=== PATIENT | male | born 1985 | race Caucasian/White ===

== ENCOUNTER 2017-01-16 17:02 | Emergency (ER) | payer SELFPAY ==
[2017-01-16] MEDS ORDERED: NORMAL SALINE 1000 ML 1,000 ML IV ONE (17:47)
[2017-01-16] MEDS ORDERED: CLINDAMYCIN 900 MG/D5W RTU 50 ML IV ONE (17:47)
[2017-01-16] MEDS ORDERED: MORPHINE SULFATE 10 MG/ML INJ IV ONE (17:48)
[2017-01-16] MEDS ORDERED: METHYLPREDNISOLONE INJ 125 MG/2 ML SDV IV ONE (17:48)
[2017-01-16] MEDS ORDERED: ONDANSETRON HCL INJ/PF 4 MG/2 ML SDV IV ONE (17:48)
--- NOTE | 2017-01-16 17:50 | ER Document Report ---
ED Medical Screen (RME) - General Chief Complaint: Toothache Stated Complaint: POSSIBLE ABSCESS ON FACE Notes: Patient is complaining of swelling of the right lower jaw since last night. Has bad lower right posterior teeth, but has never had this kind of swelling before. Very painful. Has not noted any draining. No fever noted. No significant past medical history. TRAVEL OUTSIDE OF THE [place] IN LAST 30 DAYS: No - Related Data Allergies/Adverse Reactions: No Known Allergies Allergy (Verified 12/06/13 22:14) Past Medical History Renal/ Medical History: Denies: Hx Peritoneal Dialysis - Immunizations Hx Diphtheria, Pertussis, Tetanus Vaccination: Yes Physical Exam - Vital signs Vitals: Temp Pulse Resp BP Pulse Ox 99.6 F 107 H 16 136/66 H 97 01/16/17 17:05 01/16/17 17:05 01/16/17 17:05 01/16/17 17:05 01/16/17 17:05 Course - Vital Signs Vital signs: Temp Pulse Resp BP Pulse Ox 99.6 F 107 H 16 136/66 H 97 01/16/17 17:05 01/16/17 17:05 01/16/17 17:05 01/16/17 17:05 01/16/17 17:05
--- NOTE | 2017-01-16 18:03 | ER Document Report ---
ED Oral Problem - General Mode of Arrival: Ambulatory Information source: Patient TRAVEL OUTSIDE OF THE [place] IN LAST 30 DAYS: No - HPI Patient complains to provider of: Toothache Associated symptoms: Other - See above - General Chief Complaint: Toothache Stated Complaint: toothache Notes: Patient is a 31 year old male who presents to the emergency department complaining of a right sided toothache. Patient states that he has not had any recent dental work done and that his last dental problem was a few months ago. Patient also complains of swelling to the right side of his face that worsened within the last 2 hours. Patient denies difficulty swallowing, inability to hold his secretions, and any speech problems. Patient does not have a dentist or PCP. (MOHIT ROJAS) - Related Data Allergies/Adverse Reactions: No Known Allergies Allergy (Verified 12/06/13 22:14) Past Medical History - General Information source: Patient - Social History Smoking Status: Unknown if Ever Smoked Family History: Reviewed & Not Pertinent Patient has suicidal ideation: No Patient has homicidal ideation: No - Immunizations Hx Diphtheria, Pertussis, Tetanus Vaccination: Yes Review of Systems - Review of Systems Constitutional: No symptoms reported EENT: See HPI, Mouth swelling, Dental problem. denies: Difficulty swallowing, Other - inability to hold secretions Cardiovascular: No symptoms reported Respiratory: No symptoms reported Gastrointestinal: No symptoms reported Genitourinary: No symptoms reported Male Genitourinary: No symptoms reported Musculoskeletal: No symptoms reported Skin: No symptoms reported Hematologic/Lymphatic: No symptoms reported Neurological/Psychological: denies: Speech impairment -: Yes All other systems reviewed and negative Physical Exam - Vital signs Interpretation: Normal - General General appearance: Appears well, Alert - HEENT Mouth/Lips: Other - Right mental area swollen. No swelling to submandibular area. Poor dentition to last 4 teeth of bottom right, the premolar and 2 preceeding teeth have dental decay - Respiratory Respiratory status: No respiratory distress Chest status: Nontender Breath sounds: Normal Chest palpation: Normal - Cardiovascular Rhythm: Regular Heart sounds: Normal auscultation Murmur: No - Back Back: Normal, Nontender - Extremities General upper extremity: Normal inspection General lower extremity: Normal inspection - Neurological Neuro grossly intact: Yes Cognition: Normal Orientation: AAOx4 [place] Coma Scale Eye Opening: Spontaneous [place] Coma Scale Verbal: Oriented [place] Coma Scale Motor: Obeys Commands [place] Coma Scale Total: 15 Speech: Normal - Psychological Associated symptoms: Normal affect, Normal mood - Skin Skin Temperature: Warm Skin Moisture: Dry Skin Color: Normal Course - Re-evaluation Re-evalutation: 01/16/17 18:03 She presents emergency, chief complaint of right-sided my face is swollen from an abscess. Patient states started about 2 days goes had problems with these teeth before but hasn't been to a dentist in quite some time no difficulty breathing swallowing trismus stridor or drooling on examinations no submandibular sob uvular posterior pharyngeal swelling trismus stridor or drooling or voice changes. She will be discharged on antibiotics pain control follow-up dental physician in 5-7 days and discussed reasons for ED return sooner (PRAMOD WASHINGTON) - Vital Signs Vital signs: Temp Pulse Resp BP Pulse Ox 99 F 97 16 138/70 H 98 01/16/17 18:30 01/16/17 18:30 01/16/17 18:30 01/16/17 18:30 01/16/17 18:30 Discharge - Discharge Clinical Impression: Dental abscess Condition: Stable Disposition: HOME, SELF-CARE Additional Instructions: Dental Infection or Abscess You have an infection, perhaps an abscess (pus formation) of the gum around one of your teeth, which is probably decayed. If there is an abscess, it may drain on its own or it may need to be opened or lanced. Severe swelling or drainage around a tooth usually means a deep dental abscess which usually requires evaluation and treatment by a dentist or oral surgeon. Antibiotics may be prescribed while awaiting dental treatment. If you develop high fever with chills, worsening pain, or increasing swelling in the area, see a dentist or oral surgeon immediately or return to the Emergency Department immediately. Take antibiotics as prescribed follow-up with your dental physician in 5-7 days and return for increasing worsening or new symptoms Prescriptions: Penicillin V Potassium [Penicillin Vk 250 mg Tablet] 250 mg PO Q6 #40 tablet Scribe Attestation: 01/18/17 20:57 i personally performed the services described in the documentation, reviewed the documentation recorded by the scribe in my presence and it accurately and completely records my words and actions. (PRAMOD WASHINGTON) Scribe Documentation - Scribe Written by Anel:: anel Zavala, 01/16/17, 182 acting as scribe for :: [place]
[2017-01-16] MEDS ORDERED: HYDROCODONE/ACETAMINOPHEN 5-325 MG 6 TAB/DSPK PO PRN (18:06)
[2017-01-16 18:47] VITALS: BP 138/70
== END 2017-01-16 18:30 | disposition home or self-care (01) ==
LOC: ER 17:02
DX: K04.7 Periapical abscess without sinus (principal); K02.9 Dental caries, unspecified; K08.89 Other specified disorders of teeth and supporting structures
CPT/HCPCS: 99282